=== PATIENT | male | born 1990 | race Asian ===

== ENCOUNTER 2016-08-29 14:05 | Emergency (ER) | payer OTHER ==
[~2016-08-29] VITALS: Ht 175.3 cm; Wt 75.0 kg
[2016-08-29 14:12] VITALS: Ht 175.3 cm; Wt 75.0 kg
[2016-08-29] MEDS ORDERED: KETOROLAC 30 MG INJ IM STA (14:14)
[2016-08-29] MEDS ORDERED: OXYCODONE/ACETAMINOPHEN (5/325) TAB PO ONE (14:30)
[2016-08-29] MEDS ORDERED: IBUP-1542 PO (15:03)
[2016-08-29] MEDS ORDERED: OXYC-279 PO (15:03)
[2016-08-29 15:45] VITALS: BP 123/80; PULSE 87; RESP 18; TEMP 98.2
--- NOTE | 2016-08-29 15:47 | ERD ---
ER Documentation Chief Complaint Date/Time DATE: 08/29/16 TIME: 15:43 Chief Complaint LEFT ANKLE PAIN. S/P FALL WITH SWELLING. HPI 26-year-old man brought in by EMS for left ankle injury and pain after inversion injury while playing basketball. He states he jumped up for the ball and landed on a friend's foot which caused an inversion mechanism at the left ankle. After the injury he was unable to bear full weight and had pain and swelling. Patient denies head or neck injury, no paresis or paresthesias, no chest pain or shortness of breath. Patient was placed in an air splint and transported here without further complications. ROS All systems reviewed and are negative except as per history of present illness. Medications Home Meds Active Scripts Oxycodone HCl/Acetaminophen (Percocet 5-325 mg Tablet) 1 Each Tablet, 1 EACH PO TID for PAIN LEVEL 6-10, #15 TAB Prov:BUCK BUTTS MD 08/29/16 Ibuprofen* (Ibuprofen*) 600 Mg Tablet, 600 MG PO Q8 for PAIN AND/OR INFLAMMATION , #60 TAB Prov:BUCK BUTTS MD 08/29/16 Allergies Allergies: Coded Allergies: No Known Allergy (Unverified , 08/29/16) PMhx/Soc None History of Surgery: Yes (UNDESCENDED TESTICLE REPAIR) Anesthesia Reaction: No Hx Neurological Disorder: No Hx Respiratory Disorders: No Hx Cardiac Disorders: No Hx Psychiatric Problems: No Hx Miscellaneous Medical Probl: Yes (CRYPTORCHIDISM) Hx Alcohol Use: Yes Hx Substance Use: No Hx Tobacco Use: No Smoking Status: Never smoker FmHx Family History: No diabetes Physical Exam Vitals Vital Signs Date Time Temp Pulse Resp B/P Pulse Ox O2 Delivery O2 Flow Rate FiO2 08/29/16 14:12 97.9 98 18 119/87 99 Physical Exam GENERAL: Well-developed, well-nourished, moderate pain HEENT: Moist mucous membranes, pink conjunctiva, no cervical spine tenderness or step-off deformities, no goiter, no jaundice or icterus, extraocular movements intact without pain. No submandibular induration, and no pharyngeal erythema NEURO: Alert and oriented 3, cranial nerves II through XII intact bilaterally, pupils equal round reactive to light, no focal deficits or facial asymmetry, sensation intact distally Strength 5/5 in upper and lower extremities bilaterally CARDIAC: Regular rate and rhythm, no murmurs rubs or gallops LUNGS: Clear bilaterally no wheezing crackles or stridor ABDOMEN: Soft nontender, no guarding, no rigidity, no rebound, no psoas sign no obturator sign. Normoactive bowel sounds SKIN: Warm and dry to touch, no abrasions, contusions, or hematomas, no lacerations, no ecchymosis, no target lesions, and without ulcers EXTREMITIES: No clubbing cyanosis or edema, calves are bilaterally symmetrical, no Homans sign, no popliteal cord sign. Distal pulses equal and bilateral PSYCH: Normal affect without agitation or irritability Results 24 hrs Current Medications Medications (Trade) Dose Ordered Sig/Phil Route PRN Reason Start Time Stop Time Status Last Admin Dose Admin Ketorolac Tromethamine (Toradol) 30 mg ONCE STAT IM 08/29/16 14:14 08/29/16 14:19 DC 08/29/16 14:31 Oxycodone/ Acetaminophen (Percocet (5/ 325)) 1 tab ONCE ONCE PO 08/29/16 14:30 08/29/16 14:31 DC 08/29/16 14:31 Procedures/MDM There is a mild bony deformity at the left lateral lower leg without skin erythema induration or hematomas. There is no malleoli or point tenderness either medially or laterally. X-ray left ankle 3V Interpreted by me: Bones: Two-part transverse fracture through the distal left fibula Joints: No dislocation I administered Toradol 30 mg intramuscular injection and Percocet 1 tablet p.o. for good pain control. A posterior and stirrup splints were applied to the left lower extremity with the ankle dorsiflexed to 90. Patient tolerated procedure well, and splint was secured with Solomon elastic bandage. Splint Assessment: Neurovascularly intact post splint placement with good fit. Both verbal and written follow-up instructions were provided. Patient will probably be a candidate for orthopedic surgical intervention. Nonweightbearing instructions were provided, crutches provided. Patient feels much better at this time, and vital signs are normal, symptoms have improved. I did give strict instructions to return to the ED if symptoms continue or worsen, patient will otherwise follow-up with primary care physician. Patient understood instructions and agreed to plan. Disclaimer: Inadvertent spelling and grammatical errors are likely due to EHR/ dictation software use and do not reflect on the overall quality of patient care. Also, please note that the electronic time recorded on this note does not necessarily reflect the actual time of the patient encounter. Departure Diagnosis: Primary Impression: Fibula fracture Encounter type: initial encounter Fibula location: distal Fracture type: closed Fracture morphology: unspecified fracture morphology Laterality: left Qualified Code: S82.832A - Closed fracture of distal end of left fibula, unspecified fracture morphology, initial encounter Condition: Fair Patient Instructions: Ankle Fracture (Distal Fibula), Closed BUCK BUTTS MD Aug 29, 2016 15:46
--- NOTE | 2016-08-29 16:09 | RADRPT ---
PROCEDURE: XR Ankle. CLINICAL INDICATION: Trauma due to a fall. TECHNIQUE: Three views of the left ankle were performed. Frontal, lateral, and oblique. COMPARISON: None. FINDINGS: There is an acute comminuted fracture of the distal fibula above the syndesmosis. There is medial d isplacement of the distal fragment measuring the width of the shaft. There is mild overlying soft t issue swelling. There is no other fracture and there is no dislocation. IMPRESSION: 1. Acute comminuted fracture of the distal fibula. RPTAT: QQ .Zak Sanchez MD, Date Time Electronically viewed and signed by .Zak Sanchez MD, on 08/29/2016 16:09 .R/
== END 2016-08-29 15:54 | disposition home or self-care (01) ==
LOC: E/R 14:05
DX: S82.832A Other fracture of upper and lower end of left fibula, initial encounter for closed fracture (principal); W01.0XXA Fall on same level from slipping, tripping and stumbling without subsequent striking against object, initial encounter; Y92.9 Unspecified place or not applicable
CPT/HCPCS: 29515; 73610; 96372; 99284; J1885